=== PATIENT | female | born 1995 | race Caucasian/White ===

== ENCOUNTER 2025-01-02 15:01 | Emergency (ER) | payer SELFPAY ==
[2025-01-02 15:08] VITALS: BP 132/104
[2025-01-02 15:25] LABS: % Basophils 0.3 % (0-2); % Eosinophils 0.1 % (0-6); % Immature Granulocytes 0.4 % (0-0.5); % Lymphocytes 19.6 % (20.5-51.1); % Monocytes 5.3 % (1.7-9.3); % Neutrophils 74.3 % (42.2-75.2); Absolute Lymphocytes 2.1 10^3/uL (1.2-3.4); Absolute Monocytes 0.6 10^3/uL (0.1-0.6); Absolute Neutrophils 7.9 10^3/uL (1.4-6.5); Hematocrit 37.2 % (37.0-47.0); Hemoglobin 12.7 g/dL (12.0-16.0); Mean Corp Hgb Conc. 34.1 g/dL (33.0-37.0); Mean Corpuscular Hgb 31.1 pg (27.0-31.0); Mean Platelet Volume 10.4 fL (7.4-10.4); Nucleated Red Blood Cells % 0 %; Platelet Count 212 10^3/uL (130-400); Red Blood Cell Count 4.09 10^6/uL (4.20-5.40); Red Cell Dist. Width 11.9 % (11.5-14.5); White Blood Cell Count 10.6 10^3/uL (4.8-10.8)
[2025-01-02 15:37] LABS: HCG, Serum Qualitative Screen Negative
[2025-01-02 15:41] LABS: ALT (SGPT) 25 U/L (0-35); AST (SGOT) 22 U/L (14-36); Alkaline Phosphatase 57 U/L (38-126); Blood Urea Nitrogen 18 mg/dl (7-17); Calcium 9.5 mg/dl (8.4-10.2); Carbon Dioxide 24 mmol/L (22-30); Chloride 100 mmol/L (98-107); Glucose 93 mg/dl (70-99); Potassium 3.9 mmol/L (3.5-5.1); Sodium 135 mmol/L (135-145); Total Bilirubin 0.6 mg/dl (0.2-1.3); eGFR > 60.00
[2025-01-02 17:31] VITALS: BP 130/78
[2025-01-02 18:44] VITALS: BMI 23.3
[2025-01-02] MEDS: OMNIPAQUE 50 ML PO (19:09)
--- NOTE | 2025-01-02 19:11 | ED.GENMED ---
History of Present Illness
General
Chief Complaint: Abdominal Pain
Source: patient
Exam Limitations: none
Time Seen by Provider: 01/02/25 18:37
Nursing documentation reviewed up to this point in time: agreed with
History of Present Illness
History of Present Illness:
29-year-old female presenting to the emergency department today with concerns of right lower quadrant abdominal pain over the past 8 hours or so went to urgent care was sent to the ER for assessment of possible appendicitis. Denies nausea vomiting
or diarrhea. Denies similar symptoms in the past. No history of surgery.
Review of Systems
Review of Systems
Allergies reviewed?: Yes
All Other Systems: ROS reviewed and negative except as documented in HPI and ROS
Phy Exam
Physical Exam
Physical Exam:
GENERAL: Alert , in no apparent distress
EYE: pupils equal and reactive
NECK: Supple, no significant adenopathy.
ENT: o/p clr, mmm.
CARDIAC: Regular rate and rhythm .
LUNGS: Clear breath sounds bilaterally, no acute respiratory distress, no wheezes/rales/rhonchi
ABDOMEN: Right lower quadrant abdominal pain otherwise soft benign abdomen
NEUROLOGICAL: Alert and oriented, no focal neuro deficits
SKIN: Warm and dry, skin intact.
MUSCULOSKELETAL: No edema, well perfused.
PSYCH: Normal and appropriate interaction.
Course
Orders/Labs/Results
Orders:
Orders
01/02/25 15:10
Test Result ONCE
01/02/25 15:15
Complete Blood Count/With Diff Urgent
Comprehensive Metabolic Panel Urgent
HCG, Serum Qualitative Screen Urgent
01/02/25 19:05
Iohexol [Omnipaque] See Protocol PO NOW STA
US Abdomen - Appendix Only Urgent
Comment:
Reason For Exam: RLQ pain
01/02/25 20:56
CT Abd/pel W Iv And Oral Contr Urgent
Comment:
Reason For Exam: rlq pain equivicol US
01/02/25 21:16
Urinalysis Reflex To Culture Urgent
Date Specimen was Collected: 01/02/25
Time Specimen was Collected: 21:14
Abnormal Lab Results
01/02/25 01/02/25
15:15 21:16
RBC 4.09 L 10^6/uL
(4.20-5.40)
MCH 31.1 H pg
(27.0-31.0)
Absolute Neuts (auto) 7.9 H 10^3/uL
(1.4-6.5)
Lymphocytes % 19.6 L %
(20.5-51.1)
BUN 18 H mg/dl
(7-17)
Urine Ketones 2+ A
(Negative)
01/02/25 15:15
01/02/25 15:15
Vital Signs
Initial and Last Documented VS:
Initial Vital Signs
Temp Pulse Resp BP Pulse Ox
98.2 F 84 18 132/104 100
01/02/25 15:08 01/02/25 15:08 01/02/25 15:08 01/02/25 15:08 01/02/25 15:08
Last Documented Vital Signs
Temp Pulse Resp BP Pulse Ox
98.2 F 81 18 130/78 96
01/02/25 15:08 01/02/25 17:31 01/02/25 17:31 01/02/25 17:31 01/02/25 17:31
MDM/Problems Addressed
MDM/Problems Addressed:
29-year-old female presenting to the emergency department today with concerns of right lower quadrant abdominal pain over the past few hours. Here reproducible pain McBurney's point. Concern for potential appendicitis. Plan for initial ultrasound
for assessment. Otherwise vital signs are normal labs unremarkable. Ultrasound equivocal CT scan without emergent findings. No evidence of surgical pathology stable for outpatient management. Return precautions given.
*Critical Care Note
Total Time (30-74mins, 75-104mins- exclusive of procedures): Not Applicable
ED Attending Note
-
Portions of this chart may have been created with voice recognition software.� Occasional wrong word or��sound alike� substitutions may have occurred due to the inherent limitations of voice recognition software.
Discharge Plan
Departure
Patient Disposition: Home (Routine Discharge)
Date of Disposition: 01/02/25
Time of Disposition: 23:08
Patient with high blood pressure during this ER visit?: No
Condition: Good
Covid-19: Not Applicable
Discharge Problem:
Abdominal pain
Instructions: Abdominal Pain
Referrals:
NONE,* [Family Provider] -
Activity Restrictions/Additional Instructions:
You came to the emergency department today with concerns of abdominal pain. Here you have a reassuring assessment no evidence of any surgical or emergent pathology. Please follow closely with your primary care doctor. Return for any worsening,
new or concerning symptoms.
Interventions
Interventions:
*Risk Screen - Suicide Last Done: 01/02/25 15:08
*General Assessment Last Done: 01/02/25 15:08
*Neglect/Abuse Screening Last Done: 01/02/25 15:08
ED- Fall Risk Assessment Last Done: 01/02/25 18:44
*ED COVID-19 Vaccine History Last Done: 01/02/25 15:08
YG-Sonqvm-Fyowabwgfo Assessment Last Done: 01/02/25 18:44
Discharge Date and Time
Print Language: DJIBOUTIAN
[2025-01-02 21:41] LABS: Urine Albumin Negative (Neg - Trace); Urine Bilirubin Negative (Negative); Urine Character Clear (Clear); Urine Glucose Negative (Negative); Urine Ketone 2+ (Negative); Urine Leukocyte Negative (Negative); Urine Nitrite Negative (Negative); Urine Occult Blood Negative (Negative); Urine Urobilinogen Negative (Neg - 1+)
[2025-01-02 21:54] LABS: Urine Color Straw
[2025-01-02 23:15] VITALS: BP 113/86
== END 2025-01-02 23:16 | disposition home or self-care (01) ==
LOC: EMR 15:01
PROVIDERS: Physician Assistant; EMERGENCY PHYSICIAN Student in an Organized Health Care Education/Training Program
DX: R10.31 Right lower quadrant pain (principal)
CPT/HCPCS: 99284; 74177; 76705; 80053; 81003; 84703; 85025; Q9967